=== PATIENT | male | born 1970 | race American Indian/Alaskan Native ===

== ENCOUNTER 2018-03-15 11:13 | Day surgery (SDC) | payer OTHER ==
[2018-03-15] MEDS ORDERED: NACL BACTERIOSTATIC INFILTRATI ONE (11:54)
[2018-03-15] MEDS ORDERED: LACTATED RINGERS 1,000 ML ONE (12:02)
[2018-03-15] MEDS ORDERED: DIPRIVAN 10 MG/ML IV ONE (12:53)
[2018-03-15] MEDS ORDERED: SUBLIMAZE ONE (12:53)
[2018-03-15] MEDS ORDERED: XYLOCAINE MPF 2% ONE (12:53)
[2018-03-15] MEDS ORDERED: ZOFRAN ONE (13:31)
[2018-03-15] MEDS ORDERED: ANCEF ONE (13:33)
[2018-03-15] MEDS ORDERED: MARCAINE 0.5% 30 ML INFILTRATI ONE (13:35)
[2018-03-15] MEDS ORDERED: NACL 0.9% IR ONE (13:53)
[2018-03-15] MEDS ORDERED: MARCAINE 0.5% INFILTRATI ONE (13:53)
[2018-03-15] MEDS ORDERED: DILAUDID IV PRN (14:10)
[2018-03-15] MEDS ORDERED: DEMEROL IV PRN (14:10)
--- NOTE | 2018-03-15 14:10 | Anesthesia Day of Surgery ---
Anesthesia Day of Surgery - Day of Surgery Patient Examined: Yes Patient H&P Reviewed: Yes Patient is NPO: Yes
--- NOTE | 2018-03-15 14:10 | Anesthesia Consultation ---
Anesthesia Consult and Med Hx Date of service: 03/15/18 - Airway Anesthetic Teeth Evaluation: Good ROM Head & Neck: Adequate Mental/Hyoid Distance: Adequate Mallampati Class: Class II Intubation Access Assessment: Probably Good - Pulmonary Exam CTA: Yes - Cardiac Exam Cardiac Exam: RRR - Pre-Operative Health Status ASA Pre-Surgery Classification: ASA2 Proposed Anesthetic Plan: General - Pulmonary Hx Smoking: Yes Hx Sleep Apnea: No (PT DENIES) - Cardiovascular System Hx Heart Attack/AMI: No - Central Nervous System Hx Seizures: No Hx Back Pain: Yes - Gastrointestinal Hx Ulcer: No - Other Systems Hx Substance Use: Yes (BUT USE POT TO HELP WITH BACK) Hx Cancer: No (PT DENIES)
[2018-03-15] MEDS ORDERED: TYLENOL #3 PO PRN (14:29)
--- NOTE | 2018-03-15 14:37 | Operative Report ---
PREOPERATIVE DIAGNOSIS: Mass, right axillary area. POSTOPERATIVE DIAGNOSIS: Mass, right axillary area. PROCEDURE: Removal of a mass in the right axillary area. ANESTHESIA: General. BLOOD LOSS: Minimal. FINDINGS: The patient had a lipomatous mass that is about 5 x 5 x 5 cm located toward the medial anterior aspect of the upper axilla on the right side. This was excised in toto. DESCRIPTION OF PROCEDURE: The patient in supine position, cleaned and draped in the usual fashion, I made a longitudinal incision over the mass for about 2.5 cm deep subcutaneous tissue. I was able to shave the mass easily using a cautery all the way down to healthy looking tissue. None of the major nerves or veins or arteries involved in the area. We were much satisfied. Then, we closed the wound with interrupted stitches of 4-0 Vicryl, 3-0 Vicryl interruptedly and the skin was approximated using intracuticular stitch of 4-0 undyed Vicryl, Steri-Strips, 2 x 2 and Tegaderm. The patient was then transferred to the recovery room in good condition. I talked to him, was able to move his hand and arm easily and there is no evidence of any neurological deficits. I gave him prescription for Tylenol No. 3 to be taken 1 every 4-6 hours, to see me in my office in about a week. He may go back to work within the coming 3-4 days. JOB# [id number] MICHAEL/ALFREDO
[2018-03-15] MEDS ORDERED: VERSED IV NR (15:00)
[2018-03-15] MEDS ORDERED: LACTATED RINGERS 1,000 ML IV SCH ×2 (15:00)
[2018-03-15 15:16] VITALS: BP 122/69
== END 2018-03-15 15:26 | disposition home or self-care (01) ==
LOC: OR 11:13
PROVIDERS: ATTEND Surgery
DX: D17.1 Benign lipomatous neoplasm of skin and subcutaneous tissue of trunk (principal); F17.200 Nicotine dependence, unspecified, uncomplicated
CPT/HCPCS: 19120; 88304; J0690; J2405; J2704; J3010; J7120; 88307